=== PATIENT | female | born 1965 | race Two or more races ===

== ENCOUNTER 2023-10-31 12:43 | Emergency (ER) | payer OTHER ==
[~2023-10-31] VITALS: Ht 157.5 cm; Wt 77.1 kg
[2023-10-31] MEDS ORDERED: RESTORIL30 M1 PO (13:45)
[2023-10-31] MEDS ORDERED: NEURONTIN300 MG (13:46)
== END 2023-10-31 15:04 | disposition home or self-care (01) ==
LOC: ER 12:44
DX: S09.8XXA Other specified injuries of head, initial encounter (principal); W06.XXXA Fall from bed, initial encounter; Y93.89 Activity, other specified; Y92.89 Other specified places as the place of occurrence of the external cause; Y99.8 Other external cause status

== ENCOUNTER 2024-12-28 15:50 | Emergency (ER) | payer OTHER ==
[~2024-12-28] VITALS: Ht 160 cm; Wt 72.6 kg
[~2024-12-28 15:50] MED LIST: NEURONTIN300 MG; RESTORIL30 M1 PO
[2024-12-28] MEDS ORDERED: MELATONIN5 M1 PO (16:04)
[2024-12-28] MEDS ORDERED: KETOROLAC TROMETHAMINE 60 MG VIAL IM ONE (18:15)
[2024-12-28] MEDS ORDERED: KETOROLAC TROMETHAMINE 30 MG VIAL ONE (19:03)
[2024-12-28 20:00] LABS: BASO % 0.5 % (0.1-1.2); EOS # 0.14 (0.04-0.54); EOS % 1.2 % (0.7-7.0); HEMATOCRIT 33.9 % (34.1-44.9); HEMOGLOBIN 11.6 g/dL (11.2-15.7); LYMPH % 20.5 % (19.3-53.1); MEAN CORPUSCULAR HEMOGLOBIN 31.1 pg (25.6-32.2); MONO # 1.38 (0.24-0.82); NEUT # 7.28 (1.56-6.13); NEUT % 64.9 % (34.0-71.1); PLATELET COUNT 293 K/uL (163-369); RED BLOOD COUNT 3.73 M/uL (3.93-5.22); RED CELL DISTRIBUTION WIDTH 12.4 % (11.6-14.4)
[2024-12-28 20:05] LABS: MONO % 12.3 % (4.7-12.5)
[2024-12-28 21:00] LABS: INFLUENZA A AG NEGATIVE (NEGATIVE)
[2024-12-28 21:01] LABS: COVID-19 AG NEGATIVE (NEGATIVE)
[2024-12-28] MEDS ORDERED: ZITHROMAX TRI-500 MG PO (22:07)
[2024-12-28] MEDS ORDERED: GILTUSS COUGH-118 M1 PO (22:07)
[2024-12-28] MEDS ORDERED: ACETAMINOPHEN500 M1 PO (22:07)
== END 2024-12-28 22:52 | disposition home or self-care (01) ==
LOC: ER 15:50
PROVIDERS: Preventive Medicine Public Health & General Preventive Medicine
DX: J06.9 Acute upper respiratory infection, unspecified (principal); Z20.822 Contact with and (suspected) exposure to COVID-19; Z88.8 Allergy status to other drugs, medicaments and biological substances